=== PATIENT | male | born 1940 | race Caucasian/White ===

== ENCOUNTER 2018-03-05 08:05 | Day surgery (SDC) | payer MEDICARE, BC ==
[2018-03-05] MEDS: Lactated Ringers 1,000 ML IV SCH (08:38)
[2018-03-05] MEDS ORDERED: Propofol 200 MG/20 ML SDV ONE (10:35)
[2018-03-05] MEDS ORDERED: fentaNYL 100 MCG/2 ML SDV ONE (10:35)
--- NOTE | 2018-03-05 14:08 | OR ---
PREOPERATIVE DIAGNOSIS: Screening colonoscopy, family history of colon cancer- father. POSTOPERATIVE DIAGNOSIS: Sigmoid diverticulosis, rectal polyp removed. PROCEDURE PROPOSED: Total flexible colonoscopy. PROCEDURE DONE: Total flexible colonoscopy with polypectomy x1. INDICATION: This is a 78-year-old gentleman, who comes in for screening colonoscopy. His last examination was 10-12 years ago. He does have a family history of a father with colon cancer. He denies any symptomatology. TECHNIQUE: The patient was brought to the endoscopy suite, placed in left lateral decubitus position. He was sedated per REGISTERED NURSE AMBULATORY with propofol. The flexible video colonoscope was then passed transanally and under visualization advanced to the cecum. Examination revealed a normal cecal and ascending colon area. In the transverse colon, he seemed to have a small submucosal leiomyoma, which I did not attempt to remove. I did not feel that this is going to be a problem for him and I felt there was a risk of bowel perforation in removing that. The remainder of the transverse colon was normal as well as the descending colon. The sigmoid colon revealed some diverticulosis and in the rectum, there was a small polyp removed with 2 bites of the cold biopsy forceps and submitted for pathologic examination and the scope was then withdrawn. He tolerated procedure well. FINAL IMPRESSION: 1. Rectal polyp. 2. Sigmoid diverticulosis. 3. Small submucosal leiomyoma, transverse colon. PLAN: I feel that at his age he needs no future colonoscopies. I will send a letter with the pathology report on the polyp that was removed. SCM: 03/05/2018 11:08:58 MODL: 03/05/2018 12:03:07 /[id number]
== END 2018-03-05 12:11 | disposition home or self-care (01) ==
LOC: VM.SDS 08:05
PROVIDERS: ATTEND Surgery
DX: Z12.11 Encounter for screening for malignant neoplasm of colon (principal); D12.3 Benign neoplasm of transverse colon; D12.8 Benign neoplasm of rectum; K57.30 Diverticulosis of large intestine without perforation or abscess without bleeding; I13.0 Hypertensive heart and chronic kidney disease with heart failure and stage 1 through stage 4 chronic kidney disease, or unspecified chronic kidney disease; I50.42 Chronic combined systolic (congestive) and diastolic (congestive) heart failure; N18.3 Chronic kidney disease, stage 3 (moderate); E66.9 Obesity, unspecified; Z68.33 Body mass index [BMI] 33.0-33.9, adult; I48.0 Paroxysmal atrial fibrillation; E78.00 Pure hypercholesterolemia, unspecified; Z87.891 Personal history of nicotine dependence; Z79.82 Long term (current) use of aspirin; Z79.899 Other long term (current) drug therapy; Z80.0 Family history of malignant neoplasm of digestive organs; Z95.2 Presence of prosthetic heart valve
CPT/HCPCS: 00811; 45380; J2704; J3010; J7120

== ENCOUNTER 2018-12-29 19:31 | Emergency (ER) | payer MEDICARE, BC ==
[2018-12-29] MEDS ORDERED: HYDROmorphone 1 MG/ML Syringe IVPUSH ONE (19:40)
[2018-12-29] MEDS ORDERED: HYDROmorphone 1 MG/ML Syringe SUBCUT ONE (19:41)
[2018-12-29] MEDS ORDERED: Take Home: Cyclobenzaprine 10 MG Tab, 4 Tab Pack PO ONE (19:41)
[2018-12-29] MEDS ORDERED: Ondansetron 4 MG Tab.DIS PO STA (20:15)
--- NOTE | 2018-12-30 10:30 | EDM.PDOC ---
ED HPI GENERAL MEDICAL PROBLEM - General Chief Complaint: Back Pain or Injury Stated Complaint: BACK PAIN Time Seen by Provider: 12/29/18 19:45 Source of Information: Reports: Patient History Limitations: Reports: No Limitations - History of Present Illness INITIAL COMMENTS - FREE TEXT/NARRATIVE: Pt. presents to ER with complaints of postoperative low back pain. Pt. states that he underwent L5-S1 fusion last week, and states that he has been having continuous pain and muscle spasm since discharge. Denies any new injury since the event. No new numbness/tingling in the lower extremities. Denies any saddle anesthesia or incontinence. He states that he has been taking oxycodone 5mg 1-2 tabs every 6 hours which has been of minimal help. Denies any fever or chills. Onset Date: 12/25/18 Location: Reports: Back Lower Back Pain Score (Numeric/FACES): 10 - Related Data Allergies Allergy/AdvReac Type Severity Reaction Status Date / Time morphine AdvReac Intermediate Confusion Verified 12/29/18 21:57 Home Meds: Home Meds Aspirin [Halfprin] 81 mg PO DAILY 03/04/18 [History] Lisinopril 2.5 mg PO DAILY 03/04/18 [History] Multivitamin with Minerals [Multiple Vitamin] 1 tab PO DAILY 03/04/18 [History] Past Medical History HEENT History: Reports: Hard of Hearing Cardiovascular History: Reports: Afib, Heart Failure, High Cholesterol, Hypertension, Other (See Below) Other Cardiovascular History: thoracic aortic aneurysm. valvular heart disease. cardiogenic shock Respiratory History: Reports: None Gastrointestinal History: Reports: Other (See Below) Other Gastrointestinal History: small bowel obstruction Genitourinary History: Reports: BPH, Renal Disease, Other (See Below) Other Genitourinary History: CKD III [employer] History: Musculoskeletal History: Reports: Arthritis, Gout, Other (See Below) Other Musculoskeletal History: lumbar radiculopathy. spondylolisthesis. poliomyelitis Neurological History: Reports: Other (See Below) Other Neuro History: cognitive dysfunction Psychiatric History: Reports: None Endocrine/Metabolic History: Reports: Obesity/BMI 30+, Other (See Below) Other Endocrine/Metabolic History: hyperglycemia Hematologic History: Reports: None Immunologic History: Reports: None Oncologic (Cancer) History: Reports: Prostate Dermatologic History: Reports: None - Past Surgical History Head Surgeries/Procedures: Reports: None HEENT Surgical History: Reports: Adenoidectomy, Detached Retina, Tonsillectomy Cardiovascular Surgical History: Reports: Valve Replacement, Other (See Below) Other Cardiovascular Surgeries/Procedures: ascending aorta repair GI Surgical History: Reports: Colonoscopy, Colostomy, Hernia Repair/Other, Other (See Below) Other GI Surgeries/Procedures: laparotomy Musculoskeletal Surgical History: Reports: Shoulder Surgery, Other (See Below) Other Musculoskeletal Surgeries/Procedures:: ulnar nerve release Social & Family History - Tobacco Use Smoking Status *Q: Former Smoker Used Tobacco, but Quit: Yes Month/Year Tobacco Last Used: 50 years ago - Recreational Drug Use Recreational Drug Use: No ED ROS GENERAL - Review of Systems Review Of Systems: See Below Constitutional: Reports: No Symptoms HEENT: Reports: No Symptoms Respiratory: Reports: No Symptoms Cardiovascular: Reports: No Symptoms Endocrine: Reports: No Symptoms GI/Abdominal: Reports: No Symptoms : Reports: No Symptoms Musculoskeletal: Reports: Back Pain Skin: Reports: No Symptoms Neurological: Reports: No Symptoms Psychiatric: Reports: No Symptoms Hematologic/Lymphatic: Reports: No Symptoms Immunologic: Reports: No Symptoms ED EXAM, GENERAL - Physical Exam Exam: See Below Exam Limited By: No Limitations General Appearance: Alert, WD/WN, No Apparent Distress Back Exam: Decreased Range of Motion, Muscle Spasm Extremities: Normal Inspection, Normal Range of Motion, Non-Tender, No Pedal Edema, Normal Capillary Refill Course - Vital Signs Last Recorded V/S: Last Vital Signs Temp 36.9 C 12/29/18 19:35 Pulse 87 12/29/18 19:35 Resp 14 12/29/18 19:35 BP 159/95 H 12/29/18 19:35 Pulse Ox 95 12/29/18 19:35 - Orders/Labs/Meds Meds: Medications Discontinued Medications Generic Name Dose Route Start Last Admin Trade Name Sharri PRN Reason Stop Dose Admin Cyclobenzaprine HCl 1 packet 12/29/18 19:41 12/29/18 19:47 Take Home: Cyclobenzaprine 10 Mg, 4 Tab Pack PO 12/29/18 19:42 1 packet ONETIME ONE Administration Hydromorphone HCl 1 mg 12/29/18 19:40 Dilaudid IVPUSH 12/29/18 19:41 ONETIME ONE Hydromorphone HCl 1 mg 12/29/18 19:41 12/29/18 19:47 Dilaudid SUBCUT 12/29/18 19:42 1 mg ONETIME ONE Administration Ondansetron HCl 4 mg 12/29/18 20:15 12/29/18 20:18 Zofran Odt PO 12/29/18 20:16 4 mg ONETIME STA Administration Orphenadrine Citrate 60 mg 12/29/18 19:41 12/29/18 19:47 Norflex IM 12/29/18 19:42 60 mg ONETIME ONE Administration Departure - Departure Time of Disposition: 20:30 Disposition: Home, Self-Care 01 Condition: Good Clinical Impression: Low back pain - Discharge Information Referrals: Sage Beaver PA-C [Emergency Provider] - Forms: ED Department Discharge Additional Instructions: Home to rest. This medication will make you sleepy. Take 1-2 oxycodone every 4-6 hours as needed for severe pain. Take cyclobenzaprine 10mg three times daily for back spasm. I highly suggest taking a laxative or stool softener as this medication will cause constipation. - Assessment/Plan Plan: Home to rest. This medication will make you sleepy. Take 1-2 oxycodone every 4-6 hours as needed for severe pain. Take cyclobenzaprine 10mg three times daily for back spasm. I highly suggest taking a laxative or stool softener as this medication will cause constipation.
== END 2018-12-29 20:40 | disposition home or self-care (01) ==
LOC: SUPCPDRO 19:31 → VM.ED 19:31
DX: M54.5 Low back pain (principal); I13.0 Hypertensive heart and chronic kidney disease with heart failure and stage 1 through stage 4 chronic kidney disease, or unspecified chronic kidney disease; N18.3 Chronic kidney disease, stage 3 (moderate); I50.9 Heart failure, unspecified; I48.91 Unspecified atrial fibrillation; E78.00 Pure hypercholesterolemia, unspecified; Z88.5 Allergy status to narcotic agent; Z79.82 Long term (current) use of aspirin; Z79.899 Other long term (current) drug therapy; Z87.891 Personal history of nicotine dependence
CPT/HCPCS: 96372; 99283; A9270; J1170; J2360

== ENCOUNTER 2019-01-04 10:54 | Inpatient (IN) | payer MEDICARE, BC ==
[2019-01-04] MEDS ORDERED: Cephalexin 500 MG Cap PO ONE (11:37)
[2019-01-04] MEDS ORDERED: Aspirin 81 MG Tab.EC PO ONE (11:41)
[2019-01-04] MEDS: Gabapentin 100 MG Cap PO SCH ×2 (12:47→19:47)
--- NOTE | 2019-01-04 13:24 | HP ---
CHIEF COMPLAINT: Cellulitis post lumbar surgery and intractable back pain. HISTORY OF PRESENT ILLNESS: This is a 78-year-old male who underwent an L5-S1 fusion with Dr. Arzola on 12/24/2018 and was discharged home on 12/26/2018. However, he was having more fatigue, more severe pain in his back and legs. No fever but increasing redness over his incision. Therefore, he was admitted to [facility], received IV Rocephin and vancomycin and then later Ancef. He had a CT scan which did not show any abscess. His pain improved. He was initiated on scheduled Neurontin along with Tylenol and p.r.n. oxycodone. The patient otherwise states his breathing is good. He denies cough. He does appear a little winded with talking to me. He had a chest x-ray done in [place], which did not show any pneumonia. His lab work today showed his creatinine at 1.3. He also had a white count of 13,000 and elevated CRP levels over 100, in fact it was 187 today. He otherwise had blood cultures on 12/31/2018 when he was admitted, which showed no growth. He denies any burning with urination. He denies any difficulty having bowel movements. In fact, had one this morning. The patient overall feels like he is doing well, but Physical Therapy recommended some further therapy at swing bed. The patient's lisinopril was also stopped in [place] along with his Flexeril and instructions for Keflex for another 4 days recommended. ALLERGIES: Morphine. MEDICATIONS: His medication list currently includes the Keflex 500 twice daily for another 4 days, metoprolol 25 mg 2 times a day, gabapentin 200 mg 3 times a day, oxycodone 5 mg every 6 hours as needed for pain, aspirin 81 mg daily. PAST MEDICAL HISTORY: Quite complex. Many years ago he was crushed by a backhoe, had some chest pain. This led to some shoulder problems. He tells me he has had both shoulders replaced. He has had a knee replacement. He has had valve surgery couple of years ago, actually had a cardiac arrest x2. He has a history of prostate cancer. He has chronic heart failure, chronic kidney disease, essential hypertension, history of gout. PAST SURGICAL HISTORY: Includes the shoulder joint replacements, a knee replacement, the back surgery, and an aortic valve surgery as noted above. He also had a history of some postop AFib, but is not on any anticoagulation. Has a history of hyperglycemia, but no diabetes. He has been admitted in the past for bowel obstruction. It should be noted that his EF was 55% back in 02/2016. His baseline creatinine is around 1.4 in past records. He is noted to have some baseline cognitive dysfunction with a 25/30 on his mini-mental in 2018. He has had some BPH in the past, previous small bowel obstruction, also noted thoracic aortic aneurysm without rupture, carpal tunnel with surgery for that in 2014 on the left, incisional ventral hernia repair. FAMILY HISTORY: The patient's mother had a heart attack. Father had unknown type of cancer. SOCIAL HISTORY: The patient is a former smoker. He is . He denied alcohol use. He normally lives at home with his . REVIEW OF SYSTEMS: General: He has not had any fever or chills. No significant weight changes. HEENT: No sore throat. Cardiac: No new chest pain. No palpitations. Respiratory: He denies cough or shortness of breath. Abdomen: No nausea, vomiting, diarrhea, or constipation. Musculoskeletal: He does have some back and leg discomfort, but states it is tolerable, now down to about a 4. Skin: Shows no rashes over his legs. He has no edema. He does have a well- healed midline incision with no drainage to his lumbar area. He does have little bit of redness to the right, but it has receded from the marker lines. There is no significant warmth. Mental Status: He is alert. He is orientated x3. His hearing is good. He answers questions appropriately. ASSESSMENT: 1. Status post L5-S1 lumbar interbody fusion on 12/24/[address] Arzola, now with a postoperative wound infection, receiving IV Ancef at [facility] until today when he was switched over to Keflex 500 twice daily for 4 more days. I changed it to 250 QID as that is more appropriate dosing. 2. Chronic kidney disease. Creatinine has improved since his admission. At one point, he was up to 1.68. We will repeat lab work on Sunday. 3. Essential hypertension. We will monitor him off the lisinopril. We will continue the metoprolol. 4. History of aortic valve surgery and heart failure. The patient seems to be stable without any symptoms of heart failure. 5. Pain control. We will continue the Neurontin, schedule Tylenol and p.r.n. oxycodone. PLAN: At this point, the patient will have incentive spirometry. He will have support stockings for DVT prophylaxis. We will get him up and ambulating. Actually, he is hopeful to be ambulating by himself. It is anticipated he may only need just a few like 3 to 4 days of physical therapy prior to returning home. The patient elects to be a code level 3, no CPR. Dr. Lilly may resume care next week. MKA: 01/04/2019 11:48:46 MODL: 01/04/2019 13:16:52 /[id number] [email or web address]
[2019-01-04] MEDS: oxyCODONE 5 MG Tab PO PRN (14:32)
[2019-01-04] MEDS: Cephalexin 250 MG Cap PO SCH ×3 (14:40→23:51)
[2019-01-04] MEDS: Metoprolol Tartrate 25 MG Tab PO SCH (19:47)
[2019-01-05] MEDS: oxyCODONE 5 MG Tab PO PRN ×2 (03:33→15:57)
[2019-01-05] MEDS: Cephalexin 250 MG Cap PO SCH ×3 (06:52→17:44)
[2019-01-05] MEDS: Metoprolol Tartrate 25 MG Tab PO SCH ×2 (09:17→21:13)
[2019-01-05] MEDS: Gabapentin 100 MG Cap PO SCH ×3 (09:18→21:14)
[2019-01-05] MEDS ORDERED: Acetaminophen 500 MG Tab PO PRN (17:35)
[2019-01-05] MEDS ORDERED: oxyCODONE 5 MG Tab PO ONE (17:37)
[2019-01-05] MEDS: Acetaminophen 500 MG Tab PO PRN ×2 (17:52→21:15)
[2019-01-06] MEDS: Cephalexin 250 MG Cap PO SCH ×5 (00:55→23:35)
[2019-01-06 06:58] LABS: ANION GAP 12.6 mmol/L (10-20)
[2019-01-06] MEDS: Acetaminophen 500 MG Tab PO PRN ×2 (08:01→19:37)
[2019-01-06] MEDS: Gabapentin 100 MG Cap PO SCH ×3 (08:01→19:37)
[2019-01-06] MEDS: Metoprolol Tartrate 25 MG Tab PO SCH ×2 (08:03→19:36)
--- NOTE | 2019-01-06 15:01 | PCM.SN ---
- Free Text/Narrative Note: Noted to have red right foot per the nurse she wonders if he has cellulitis but he doesn't have any sores. Has a hx of gout but not having pain. I didn't look at the foot when they called me late afternoon as he is already on ABX for infection around his back incision and he is not having any fevers or pain in the foot. Dr. Lilly can evaluate tomorrow AM and I did order meds for gout as well.
[2019-01-06] MEDS: oxyCODONE 5 MG Tab PO PRN (23:35)
[2019-01-07] MEDS: Cephalexin 250 MG Cap PO SCH ×3 (06:16→17:40)
[2019-01-07] MEDS: Metoprolol Tartrate 25 MG Tab PO SCH ×2 (07:33→21:03)
[2019-01-07] MEDS: Gabapentin 100 MG Cap PO SCH ×3 (07:34→21:04)
[2019-01-07] MEDS: Acetaminophen 500 MG Tab PO PRN (07:34)
[2019-01-07] MEDS: oxyCODONE 5 MG Tab PO PRN ×3 (08:34→23:22)
[2019-01-07] MEDS: Colchicine 0.6 MG Tab PO SCH (08:34)
--- NOTE | 2019-01-07 09:12 | PN ---
Progress Note for [facility] Date: 01/07/2019 Room #: VM.217 SUBJECTIVE: The patient is getting stronger. He still has some back stiffness, soreness. He was noted to have some mild swelling of his feet. There was redness on the lateral aspect of his left foot that did start last night. It has not progressed since yesterday. It is noted that he is currently on Keflex because of some cellulitis of his back incision, which has greatly improved. Today is his last day of Keflex. Physical therapy is still working with the patient and would like to continue with the patient. OBJECTIVE: Vital Signs: His weight is 95.25 kg, which is down 3.6 kg from earlier this week. Pulse is 70, blood pressure is 112/62, respiratory rate is 20, saturations are 96%. Skin: on his right lateral foot has an area that is approximately 6 cm x 2 cm that is red along the 4th metatarsal ray. It is not particularly tender to palpation. It is not going beyond the marker line from last evening. He has trace edema on his left lower leg as well as his right leg. Heart: Regular rate and rhythm. Lungs: Diminished breath sounds on bases. Back: Incision is well reapproximated. There is some suture type material that is noted to be present. There is no erythema. LABORATORY STUDIES: His lab work today shows his white blood cell count 11.9, hemoglobin 13.2 with platelets 219 with 52 segs, 1 band, 38 lymphocytes. ESR is 96. Uric acid level is elevated at 7.6. CRP is elevated at 18.2. IMPRESSION: 1. Cellulitis of back incision, which is improving. 2. Status post lumbar surgery. 3. Left foot gout flare. 4. Coronary artery disease. 5. Mild congestive heart failure. 6. Hypertension. 7. Chronic kidney disease. PLAN: We will place the patient on colchicine right now to help lower his uric acid level. We will encourage him to wear support hose to help with fluid of his lower extremities. Today is his last day of his Keflex which would be fine. We will inquire with his neurosurgeon's office about suture cares for his wound. Anticipate most likely tomorrow he will be able to be discharged home. We will encourage him to wear support hose to help with fluid issues. GM01/07/2019 08:29:13 MODL: 01/07/2019 09:03:17 /[id number]
[2019-01-08] MEDS: Acetaminophen 500 MG Tab PO PRN (03:20)
[2019-01-08 07:24] LABS: ANION GAP 13.4 mmol/L (10-20)
[2019-01-08] MEDS: Colchicine 0.6 MG Tab PO SCH (08:01)
[2019-01-08] MEDS: Gabapentin 100 MG Cap PO SCH ×2 (08:01→12:15)
[2019-01-08] MEDS: oxyCODONE 5 MG Tab PO PRN (08:01)
[2019-01-08] MEDS: Metoprolol Tartrate 25 MG Tab PO SCH (08:02)
--- NOTE | 2019-01-08 09:43 | PN ---
Progress Note for [facility]AG[facility] Date: 01/08/2019 Room #: VM.217 SUBJECTIVE: The patient is eager for discharge home. His foot is feeling better, looking better. His swelling in his legs has improved since wearing his support stockings. He is not certain if he has pain pills at home. We did inquire with his neurosurgeon, and his sutures in his back are dissolvable so do not need to be removed. I did confirm with his that he does still have some pain pills available at home, about 18 of them. OBJECTIVE: Vital Signs: His temperature is 36.4, pulse 94, blood pressure is 122/74, respiratory rate is 18, and saturations are 95. Heart: Regular rate and rhythm. Lungs: Clear to auscultation. Abdomen: Soft. Musculoskeletal: Incision on his back is looking well. The swelling of his feet has gone down with stockings. Foot per nursing is improved. LABORATORY DATA: Today, white blood cell count 10.7, hemoglobin 13.3, platelets 221 with 47 segs and 42 lymphs. Sodium 138, potassium 4.4, creatinine stable at 1.5, GFR 46, glucose 120. LFTs normal. CRP is improved to 16.5. ProBNP is 613. IMPRESSION: 1. Cellulitis of his back. 2. Deconditioning secondary to back surgery. 3. Gout flare of his left foot. 4. Coronary artery disease. 5. Congestive heart failure. 6. Mild cognitive dysfunction. PLAN: The patient will be discharged home today. He will have home health. The patient's documentation for home health will be on his discharge summary. GM01/08/2019 08:57:00 MODL: 01/08/2019 09:29:40 /[id number]
--- NOTE | 2019-01-09 03:18 | DISCH ---
PRIMARY DIAGNOSES: 1. Cellulitis of incision. 2. Deconditioning status post back surgery. 3. Acute gout flare. 4. Mild dehydration. 5. Coronary artery disease. 6. Mild congestive heart failure. 7. Hypertension. 8. Chronic kidney disease. 9. Mild cognitive dysfunction. SUMMARY OF ADMIT HISTORY AND PHYSICAL: The patient is a 78-year-old male, who underwent elective back surgery at [facility] by Dr. Arzola on 12/24/2018, he had an L5-S1 fusion, and he was discharged home on 12/26/2018. He was having problems that were concerning regarding redness of his back, and he was admitted to [facility], given initially Rocephin and vancomycin, later Ancef; had a CT which did not show any abscess. Skin was improving. He was placed on Neurontin and Tylenol as well as p.r.n. oxycodone to help with his pain and increased strengthening. He was noted to have a creatinine of 1.3 when in the [place]. White blood cell count had been 13,000. CRP had been over 100 and was up to 187. SUMMARY OF SWING BED COURSE: The patient was placed on swing bed. He continued to receive cephalexin, had physical therapy. He was noted to have some swelling of his feet as well as redness on the top of his left foot, which started on 01/06/2019. On 01/07, it was felt to be gout to this foot but he was not having much of pain. He also was taking some narcotics. The patient did receive support stockings for DVT prophylaxis. The patient is code level 3. It was noted his lab work that was done on 01/08/2019 showed a white blood cell count of 10.7, hemoglobin 13.3, platelets 221, with 47 segs and 42 lymphs. Sodium was 138, potassium 4.4, creatinine 1.5, GFR 46, glucose 120. Uric acid done on 01/07 had been 7.6. His LFTs were normal. His CRP had improved to 16.5. His proBNP was 613. Albumin 2.7. MEDICATIONS: The patient's medications at discharge will be, 1. Oxycodone 5 mg 1 pill every 6 hours as needed. 2. Metoprolol 25 mg 1 pill twice a day. 3. Gabapentin 100 mg 2 pills 3 times a day. 4. Colchicine 0.6 mg 1 pill daily for 5 more days. 5. Tylenol Extra Strength 500 mg 2 pills 3 times a day as needed. PLAN: The patient is to follow up and see me in a week's time for recheck. He is to follow up with Neurosurgery per Neurosurgery recommendations. He is to wear lumbar support per Neurosurgery recommendations as well as activity per Neurosurgery recommendations. Face to face documentation for Home Health.The patient is in need of home health because he is homebound. He will need physical therapy for strengthening. He will need to have monitoring of his CHF with his fluid on his feet. The patient uses a walker, cannot walk for very far before becoming tired, fatigued, due to his back surgery. The patient would depend on others to bring him to the hospital for physical therapy. I will be monitoring his progress on home health. GM01/08/2019 09:13:24 MODL: 01/09/2019 02:36:12 /[id number] RACHEL
== END 2019-01-08 12:30 | disposition home health service (06) | DRG 603 ==
LOC: VM.MS 10:54
PROVIDERS: ADMIT Internal Medicine; ATTEND Internal Medicine
DX: L03.312 Cellulitis of back [any part except buttock and flank] (principal); I13.0 Hypertensive heart and chronic kidney disease with heart failure and stage 1 through stage 4 chronic kidney disease, or unspecified chronic kidney disease; R53.81 Other malaise; Z98.890 Other specified postprocedural states; I25.10 Atherosclerotic heart disease of native coronary artery without angina pectoris; N18.9 Chronic kidney disease, unspecified; I50.9 Heart failure, unspecified; Z87.891 Personal history of nicotine dependence; Z86.74 Personal history of sudden cardiac arrest; Z85.46 Personal history of malignant neoplasm of prostate; E86.0 Dehydration; M10.9 Gout, unspecified; G31.84 Mild cognitive impairment of uncertain or unknown etiology; Z96.612 Presence of left artificial shoulder joint; Z96.611 Presence of right artificial shoulder joint; Z96.659 Presence of unspecified artificial knee joint; Z79.82 Long term (current) use of aspirin; Z79.899 Other long term (current) drug therapy
CPT/HCPCS: 36415; 80048; 80053; 83880; 84550; 85025; 85652; 86140; 97116-GP; 97161-GP; 97165-GO; 97530-GP; A9270-GY

== ENCOUNTER 2019-05-21 09:09 | Observation (INO) | payer MEDICARE, BC ==
[2019-05-21] MEDS ORDERED: Sodium Chloride 0.9% 10 ML Syringe FLUSH PRN (09:27)
--- NOTE | 2019-05-21 09:32 | EDM.PDOC ---
ED HPI GENERAL MEDICAL PROBLEM - General Time Seen by Provider: 05/21/19 09:20 - History of Present Illness INITIAL COMMENTS - FREE TEXT/NARRATIVE: Pt presents c/p cp. Has had cp for the last year w/o any answers but states cp is different today. Hx of aortic value replacement in [place], hx of aortic aneurysm Chest Pain Score (Numeric/FACES): 7 - Related Data Allergies Allergy/AdvReac Type Severity Reaction Status Date / Time morphine AdvReac Intermediate Confusion Verified 05/21/19 09:49 Home Meds: Home Meds Gabapentin [Neurontin] 200 mg PO TID #30 cap 01/08/19 [Rx] Acetaminophen [Tylenol Extra Strength] 1,000 mg PO ASDIRECTED PRN 05/21/19 [ History] Aspirin [Halfprin] 81 mg PO DAILY 05/21/19 [History] Colchicine 0.6 mg PO DAILY 05/21/19 [History] Metoprolol Tartrate [Lopressor] 12.5 mg PO BID 05/21/19 [History] Multivitamin with Minerals [Multiple Vitamin] 1 tab DAILY 05/21/19 [History] Past Medical History HEENT History: Reports: Hard of Hearing Cardiovascular History: Reports: Afib, Heart Failure, High Cholesterol, Hypertension, Other (See Below) Other Cardiovascular History: thoracic aortic aneurysm. valvular heart disease. 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 spondylolisthesis. poliomyelitis Neurological History: Reports: Other (See Below) Other Neuro History: cognitive dysfunction Psychiatric History: Reports: None Endocrine/Metabolic History: Reports: Obesity/BMI 30+, Other (See Below) Other Endocrine/Metabolic History: hyperglycemia Hematologic History: Reports: None Immunologic History: Reports: None Oncologic (Cancer) History: Reports: Prostate Dermatologic History: Reports: None - Past Surgical History Head Surgeries/Procedures: Reports: None HEENT Surgical History: Reports: Adenoidectomy, Detached Retina, Tonsillectomy Cardiovascular Surgical History: Reports: Valve Replacement, Other (See Below) Other Cardiovascular Surgeries/Procedures: ascending aorta repair GI Surgical History: Reports: Colonoscopy, Colostomy, Hernia Repair/Other, Other (See Below) Other GI Surgeries/Procedures: laparotomy Endocrine Surgical History: Reports: None Musculoskeletal Surgical History: Reports: Shoulder Surgery, Other (See Below) Other Musculoskeletal Surgeries/Procedures:: ulnar nerve release Oncologic Surgical History: Reports: None Dermatological Surgical History: Reports: None Social & Family History - Family History HEENT: Reports: None Cardiac: Reports: PR Other Cardiac Family History: Both parent Respiratory: Reports: None GI: Reports: None : Reports: None Musculoskeletal: Reports: None Neurological: Reports: None Psychiatric: Reports: None Endocrine/Metabolic: Reports: None Hematologic: Reports: None Immunologic: Reports: None Oncologic: Reports: None - Caffeine Use Caffeine Use: Reports: Coffee ED ROS GENERAL - Review of Systems Review Of Systems: See Below Constitutional: Reports: No Symptoms HEENT: Reports: No Symptoms Respiratory: Reports: Shortness of Breath Cardiovascular: Reports: Chest Pain Endocrine: Reports: No Symptoms GI/Abdominal: Reports: No Symptoms : Reports: No Symptoms Musculoskeletal: Reports: No Symptoms Skin: Reports: No Symptoms Neurological: Reports: No Symptoms Psychiatric: Reports: No Symptoms Hematologic/Lymphatic: Reports: No Symptoms ED EXAM, GENERAL - Physical Exam Exam: See Below Free Text/Narrative:: Pt presents with left side chest pain started 1 yr ago. Has seen providers in [place] but has not been able to figure out what the pain in related to. Per his pcp pt appears more short of breath then in the past. PT with hx of aortic valve replacement and aortic aneurysm. Pt with elevated d dimer cta noted moderate mediastinal axillary and hiler adenopathy along with chronic transverse fracture of the sternum. Trop at 0.041 will repeat at 1430 along with ekg. General Appearance: Alert, WD/WN, No Apparent Distress Course - Vital Signs Last Recorded V/S: Last Vital Signs Temp 36.4 C 05/21/19 09:10 Pulse 83 05/21/19 09:40 Resp 32 H 05/21/19 09:40 BP 181/105 H 05/21/19 09:40 Pulse Ox 96 05/21/19 09:10 - Orders/Labs/Meds Orders: Active Orders 24 hr Category Date Time Status Admission Status [Patient Status] [ADT] Routine ADT 05/21/19 11:22 Ordered EKG 12 Lead [EKG Documentation Completion] [RC] ROUTINE Care 05/21/19 14:30 Ordered EKG 12 Lead [EKG Documentation Completion] [RC] STAT Care 05/21/19 09:26 Ordered TROPONIN I [CHEM] Timed Lab 05/21/19 14:30 Ordered Sodium Chloride 0.9% [Saline Flush] Med 05/21/19 09:27 Ordered 10 ml FLUSH ASDIRECTED PRN Peripheral IV Insertion Adult [OM.PC] Routine Oth 05/21/19 09:27 Ordered Medication Orders Sodium Chloride (Saline Flush) 10 ml FLUSH ASDIRECTED PRN PRN Reason: Keep Vein Open Labs: Laboratory Tests 05/21/19 05/21/19 05/21/19 Range/Units 09:29 09:29 09:29 WBC 10.5 H (4.0-10.0) x10^3/uL RBC 5.63 (4.5-6.0) x10^6/uL Hgb 15.9 D (14.0-18.0) g/dL Hct 49.1 (40.0-52.0) % MCV 87.2 D (78.0-93.0) fL MCH 28.2 (26.0-32.0) pg MCHC 32.4 (32.0-36.0) g/dL RDW Coeff of Beto 14.9 (10.0-15.0) % Plt Count 140 D (130-400) x10^3/uL Neut % (Auto) 35.0 L (50.0-80.0) % Lymph % (Auto) 56.7 H (25.0-50.0) % [place] % (Auto) 6.4 (2.0-11.0) % Eos % (Auto) 1.1 (0.0-4.0) % Baso % (Auto) 0.8 (0.2-1.2) % PT 10.4 (10.0-12.8) SEC INR 0.9 L (2.0-3.5) D-Dimer, Quantitative (<=0.58) mg/LFEU Sodium 143 (136-145) mmol/L Potassium 3.9 (3.5-5.1) mmol/L Chloride 104 (98-107) mmol/L Carbon Dioxide 26 (21-32) mmol/L Anion Gap 16.9 (10-20) mmol/L BUN 17 (7-18) mg/dL Creatinine 1.4 H (0.70-1.30) mg/dL Est Cr Clr Drug Dosing TNP Estimated GFR (MDRD) 49 Glucose 169 H (74-106) mg/dL Calcium 9.2 (8.5-10.1) mg/dL Corrected Calcium 9.44 (8.5-10.1) mg/dL Total Bilirubin 0.7 (0.2-1.0) mg/dL AST 31 (15-37) U/L ALT 38 (16-63) U/L Alkaline Phosphatase 113 (46-116) U/L Troponin I 0.041 (<=0.056) ng/mL Total Protein 7.3 (6.4-8.2) g/dL Albumin 3.7 (3.4-5.0) g/dL Globulin 3.6 Albumin/Globulin Ratio 1.03 Urine Color (YELLOW) Urine Appearance (CLEAR) Urine pH (5.0-8.0) Ur Specific [place] Urine Protein (NEGATIVE) mg/dL Urine Glucose (UA) (NEGATIVE) mg/dL Urine Ketones (NEGATIVE) mg/dL Urine Occult Blood (NEGATIVE) Urine Nitrite (NEGATIVE) Urine Bilirubin (NEGATIVE) Urine Urobilinogen (0.2) EU/dL Ur Leukocyte Esterase (NEGATIVE) Urine RBC (NOT SEEN) /HPF Urine WBC (NOT SEEN) /HPF Amorphous Sediment Urine Bacteria (NEGATIVE) /HPF Hyaline Casts (NEGATIVE) /HPF Urine Mucus (NEGATIVE) /LPF 05/21/19 05/21/19 Range/Units 09:29 10:53 WBC (4.0-10.0) x10^3/uL RBC (4.5-6.0) x10^6/uL Hgb (14.0-18.0) g/dL Hct (40.0-52.0) % MCV (78.0-93.0) fL MCH (26.0-32.0) pg MCHC (32.0-36.0) g/dL RDW Coeff of Beto (10.0-15.0) % Plt Count (130-400) x10^3/uL Neut % (Auto) (50.0-80.0) % Lymph % (Auto) (25.0-50.0) % [place] % (Auto) (2.0-11.0) % Eos % (Auto) (0.0-4.0) % Baso % (Auto) (0.2-1.2) % PT (10.0-12.8) SEC INR (2.0-3.5) D-Dimer, Quantitative 1.43 H (<=0.58) mg/LFEU Sodium (136-145) mmol/L Potassium (3.5-5.1) mmol/L Chloride (98-107) mmol/L Carbon Dioxide (21-32) mmol/L Anion Gap (10-20) mmol/L BUN (7-18) mg/dL Creatinine (0.70-1.30) mg/dL Est Cr Clr Drug Dosing Estimated GFR (MDRD) Glucose (74-106) mg/dL Calcium (8.5-10.1) mg/dL Corrected Calcium (8.5-10.1) mg/dL Total Bilirubin (0.2-1.0) mg/dL AST (15-37) U/L ALT (16-63) U/L Alkaline Phosphatase (46-116) U/L Troponin I (<=0.056) ng/mL Total Protein (6.4-8.2) g/dL Albumin (3.4-5.0) g/dL Globulin Albumin/Globulin Ratio Urine Color Yellow (YELLOW) Urine Appearance Clear (CLEAR) Urine pH 5.5 (5.0-8.0) Ur Specific [place] >=1.030 Urine Protein 30 H (NEGATIVE) mg/dL Urine Glucose (UA) Negative (NEGATIVE) mg/dL Urine Ketones Negative (NEGATIVE) mg/dL Urine Occult Blood Negative (NEGATIVE) Urine Nitrite Negative (NEGATIVE) Urine Bilirubin Negative (NEGATIVE) Urine Urobilinogen 0.2 (0.2) EU/dL Ur Leukocyte Esterase Negative (NEGATIVE) Urine RBC Not seen (NOT SEEN) /HPF Urine WBC Not seen (NOT SEEN) /HPF Amorphous Sediment Few Urine Bacteria Rare (NEGATIVE) /HPF Hyaline Casts Few H (NEGATIVE) /HPF Urine Mucus Few H (NEGATIVE) /LPF Meds: Medications Generic Name Dose Route Start Last Admin Trade Name Freq PRN Reason Stop Dose Admin Sodium Chloride 10 ml 05/21/19 09:27 Saline Flush FLUSH ASDIRECTED PRN Keep Vein Open Discontinued Medications Generic Name Dose Route Start Last Admin Trade Name Freq PRN Reason Stop Dose Admin Aspirin 324 mg 05/21/19 09:45 05/21/19 09:48 Aspirin PO 05/21/19 09:46 324 mg ONETIME ONE Administration Iopamidol 100 ml 05/21/19 10:19 05/21/19 10:35 Isovue-300 (61%) IVPUSH 05/21/19 10:20 100 ml ONETIME ONE Administration Departure - Departure Time of Disposition: 11:27 Disposition: Refer to Observation Condition: Good Clinical Impression: Chest pain Sepsis Event Note - Focused Exam Vital Signs: Vital Signs Temp Pulse Resp BP Pulse Ox 05/21/19 09:40 83 32 H 181/105 H 05/21/19 09:10 36.4 C 82 24 H 179/95 H 96 Date Exam was Performed: 05/21/19 Time Exam was Performed: 11:24 - My Orders Last 24 Hours: My Active Orders 05/21/19 09:26 EKG 12 Lead [EKG Documentation Completion] [RC] STAT 05/21/19 09:27 Sodium Chloride 0.9% [Saline Flush] 10 ml FLUSH ASDIRECTED PRN Peripheral IV Insertion Adult [OM.PC] Routine 05/21/19 11:22 Admission Status [Patient Status] [ADT] Routine 05/21/19 14:30 EKG 12 Lead [EKG Documentation Completion] [RC] ROUTINE TROPONIN I [CHEM] Timed - Assessment/Plan Admission H&P: Please use this note as an admission H&P Last 24 Hours: My Active Orders 05/21/19 09:26 EKG 12 Lead [EKG Documentation Completion] [RC] STAT 05/21/19 09:27 Sodium Chloride 0.9% [Saline Flush] 10 ml FLUSH ASDIRECTED PRN Peripheral IV Insertion Adult [OM.PC] Routine 05/21/19 11:22 Admission Status [Patient Status] [ADT] Routine 05/21/19 14:30 EKG 12 Lead [EKG Documentation Completion] [RC] ROUTINE TROPONIN I [CHEM] Timed
[2019-05-21] MEDS ORDERED: Aspirin 81 MG Tab.Chew PO ONE (09:45)
[2019-05-21 10:12] LABS: CHLORIDE,CL 104 mmol/L (98-107); SODIUM,NA 143 mmol/L (136-145)
[2019-05-21 10:13] LABS: ANION GAP 16.9 mmol/L (10-20)
[2019-05-21] MEDS ORDERED: Iopamidol 612 MG/ML 100 ML Bottle IVPUSH ONE (10:19)
--- NOTE | 2019-05-21 10:33 | CR ---
[id number] RAD/RAD Chest PA And Lateral EXAM: RAD Chest PA And Lateral INDICATION: CHEST PAIN. COMPARISON: None. DISCUSSION: Cardiomegaly and central vascular congestion. Changes of prior median sternotomy. Bibasal parenchymal scarring in the lungs. No infiltrate, effusion, pneumothorax, or edema. IMPRESSION: No acute findings. Freddy Martinez MD 05/21/19 1032 Thank you for allowing us to participate in the care of your patient.
--- NOTE | 2019-05-21 11:12 | CT ---
[id number] CT/CTA Chest EXAM: CT ANGIOGRAM CHEST INDICATION: CHEST PAIN. COMPARISON: Plain radiographs same date. DISCUSSION: No large or central pulmonary embolus is identified, but respiratory motion limits evaluation for small and peripheral emboli. Mild to moderate bilateral axillary, mediastinal and mild bilateral hilar lymphadenopathy. A employee's representative precarinal node is 35 x 19 mm, a left axillary node is 24 x 14 mm. Mild cardiomegaly. Prior sternotomy with aortic valve replacement. There are a few indeterminate small noncalcified nodules. For instance, 5 mm right lower lobe image 46 series 4 and 4 mm left lower lobe image 43 series 4. Nonunion of the sternotomy. Chronic appearing transverse fracture of the sternum. IMPRESSION: 1. No large or central pulmonary embolism. 2. Mild to moderate indeterminate mediastinal, axillary and hilar adenopathy. Eric Shook MD 05/21/19 3008 Thank you for allowing us to participate in the care of your patient.
[2019-05-21] MEDS ORDERED: Menthol/Methyl Salicylate 85 GM Tube TOP PRN (18:38)
[2019-05-21] MEDS: Acetaminophen 500 MG Tab PO PRN (18:47)
[2019-05-21] MEDS: Metoprolol Tartrate 25 MG Tab PO SCH (20:22)
[2019-05-22] MEDS: Acetaminophen 500 MG Tab PO PRN (01:30)
[2019-05-22] MEDS ORDERED: Aspirin 81 MG Tab.EC PO SCH (08:00)
[2019-05-22] MEDS: Metoprolol Tartrate 25 MG Tab PO SCH (08:01)
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
== END 2019-05-22 09:50 | disposition home or self-care (01) ==
LOC: VM.ED 09:09 → VM.MS 11:22
PROVIDERS: ADMIT Nurse Practitioner; ATTEND Nurse Practitioner
DX: R07.89 Other chest pain (principal); I13.0 Hypertensive heart and chronic kidney disease with heart failure and stage 1 through stage 4 chronic kidney disease, or unspecified chronic kidney disease; N18.3 Chronic kidney disease, stage 3 (moderate); I50.9 Heart failure, unspecified; E78.00 Pure hypercholesterolemia, unspecified; M19.90 Unspecified osteoarthritis, unspecified site; M10.9 Gout, unspecified; E66.9 Obesity, unspecified; Z88.5 Allergy status to narcotic agent
CPT/HCPCS: 36415; 71046; 71275; 80053; 81001; 84484; 85025; 85379; 85610; 93005; 99217; 99220; 99285-25; A9270-GY; G0378; Q9967